=== PATIENT | female | born 1940 | race Caucasian/White ===

== ENCOUNTER 2022-01-08 14:30 | Outpatient (RCR) | payer MEDICARE, BC, SELFPAY ==
--- NOTE | 2021-12-26 09:29 | PT.OPEX ---
[facility] Eval Start: 12/26/21 07:26 Freq: Status: Active Protocol: Document 12/26/21 07:26 TEODORAAlvaro (Rec: 12/26/21 09:29 KL [id number]) E-signed By Sakina Burnette PT Physical Therapy Outpatient Evaluation Insurance Information Recert Due Date 03/20/22 Insurance Name Medicare B Insurance Information/Comments [employer] Medical Diagnosis Left leg pain Treating Diagnosis Low back pain, radiculopathy, dural tension, poor postural positioning, limited lumbar mobility, limited L hip ROM Referring MD Rula Morgan Subjective Subjective Jennie reports to PT with primary complaint of left leg pain that has been ongoing for about 3 weeks. She presented to urgent care 12/18/21. She denies any specific injury but primary caregiver for with ADLs and gait (uses gait belt). Based on examination, MD ruled out DVT and herpes zoster. Differential diagnoses at the time were peripheral vascular disease and arthritis however symptoms were more aligned with radiculopathy related to impingement of L5- S1 nerve distribution. She was placed on 5 day course of prednisone and instructed to follow up with Dr. Bruno PCP if symptoms persist or worsen . She notes prednisone helped some and on 4th day she had no symptoms at all until she had to sit on a hard chair for about an hour. Noticed increase in radicular symptoms following this. She has not tried anything else for this condition. Denies changes in bowel/bladder, loss of strength or N/T in feet. Does mainly note burning sensation in posterior L calf and traveling up to L hip. PMH: Hypertension Pain Comments /10 worst 1-310 best Date of Last Physician Visit 12/18/21 Current Work Status Retired Precautions Therapy Limitations/Systems Review Not Limited Objective Other/Pertinent Objective Lumbar ROM: -Flx: able to touch ground, pull in B calf, repeated flexion does not reproduce symptoms today -Ext: 50%, no pain but overall restricted with lumbar mobility in this direction -R Rot: 100% -L Rot: 100% -R Sidebend: 100% no pain -L Sidebend: 100% however reproduces radicular symptoms Homans sign: - SLR: + today L LE, - R LE Able to palpate dorsal pedal pulse LE ROM (R/L): -Hip Ext: 01/22 -Hip Flx: 105/100-painful posterior hip and down L LE -Hip ER: 40/35-reproduces pain in L LE -Hip IR: -reproduces pain in L LE Unable to lay supine and R sidelying without reproduction of symptoms MMT B LE: strong and pain free Standing posture: flexed hip positioning Seated posture: posterior pelvic tilt Functional Test Performed & Score Oswestry: 29, 58% Assessment Assessment/Impression Patient is an 81 year old female presenting to physical therapy for evaluation and treatment of left leg pain. Patient presents with Low back pain, radiculopathy, dural tension, poor postural positioning, limited lumbar mobility, limited L hip ROM. These impairments are limiting the patients ability to sit/ stand for extended periods, lay supine and R sidelying, lift and care for . Patient appears motivated to participate in PT and presents with good prognosis to improve mobility, strength, proprioception and return to functional activities with skilled physical therapy intervention. Primary Functional Limitations sit/stand for extended periods , lay supine and R sidelying, lift and care for Plan of Care Rehabilitation Potential Good Physical Therapy Goals In 6 weeks (02/06/22) Pt will report 25-50% improvement in radicular symptoms in order to demonstrate functional progress Pt will be able to stand for > 30 minutes with <2/10 pain Pt will be able to sit up to 30 minutes with <2/10 pain In 10 weeks (03/06/22) Pt will report 50-75% improvement in radicular symptoms in order to demonstrate functional progress and return to all caregiver tasks with <1/10 pain Pt will exhibit 20% improvement on the Modified Oswestry Outcome measure to demonstrate functional improvement and progress towards goals. In order to improve quality of sleep, patient will wake no more than 1 time per night secondary to pain Pt will be able to stand for > 45 minutes with <2/10 pain Pt will be able to sit up to 60 minutes with <2/10 pain Treatment Plan/Direct Interventions Gait Training,Ice/Cold/ Vasopneumatic,Joint Mobilization,Manual Therapy, Neuromuscular Re-ed,Self-Care/ Home Management,Therapeutic Activities,Therapeutic Exercises Frequency/Duration 1x/wk for 6 weeks with additional 4 sessions prn based on progress Patient Will Be Discharged From Therapy Completion of LTG(s), Independent w/HEP, Independently Progressing Evaluation Billing Untimed Code Treatment Minutes 20 Complexity Low Certification Information Initial Certification Date 12/26/21 Ending Certification Date 03/20/22 Provider Signature Shows Agreement With POC & Medical Necessity Physician Comment/Change Comment or Changes Physician NPI Number #
== END 2022-11-01 23:59 | disposition home or self-care (01) ==
PROVIDERS: PCP Family Medicine; Visit Provider Nurse Practitioner Family
DX: M79.605 Pain in left leg (principal); Z51.89 Encounter for other specified aftercare
CPT/HCPCS: 97110; 97140; 97161

== ENCOUNTER 2022-08-10 08:10 | Outpatient (CLI) | payer MEDICARE, BC, SELFPAY | END 2022-08-10 08:11 | disposition home or self-care (01) | PROVIDERS: PCP Family Medicine; Visit Provider Family Medicine | DX: I10 Essential (primary) hypertension (principal); E78.5 Hyperlipidemia, unspecified; Z13.0 Encounter for screening for diseases of the blood and blood-forming organs and certain disorders involving the immune mechanism; Z13.21 Encounter for screening for nutritional disorder | CPT/HCPCS: 80048; 80061; 82607 ==

== ENCOUNTER 2024-03-25 14:21 | Outpatient (CLI) | payer MEDICARE, BC, SELFPAY | END 2024-03-25 14:22 | disposition home or self-care (01) | PROVIDERS: PCP Family Medicine; Visit Provider Family Medicine | DX: E78.5 Hyperlipidemia, unspecified (principal); I10 Essential (primary) hypertension; R30.0 Dysuria; Z13.29 Encounter for screening for other suspected endocrine disorder | CPT/HCPCS: 80048; 80061; 84443; 87086 ==

== ENCOUNTER 2025-01-05 11:16 | Outpatient (CLI) | payer MEDICARE, BC, SELFPAY | END 2025-01-05 11:17 | disposition home or self-care (01) | LOC: LKVREF 11:16 | PROVIDERS: PCP Family Medicine; Visit Provider Family Medicine | DX: I10 Essential (primary) hypertension (principal) | CPT/HCPCS: 80048 ==